=== PATIENT | male | born 1935 | race Caucasian/White ===

== ENCOUNTER 2016-09-30 16:37 | Emergency (ER) | payer OTHER ==
[~2016-09-30 16:37] MED LIST: Sodium Chloride 0.9% 100 ML BAG ONE
[2016-09-30 17:18] LABS: #Basophils 0.1 thou/uL (0.0-0.2); #Eosinphils 1.1 thou/uL (0.0-0.7); #Lymphocytes 1.5 thou/uL (1.20-3.40); #Monocytes 0.5 thou/uL (0.11-0.59); #Neutrophils 3.5 thou/uL (1.40-6.50); %Basophils 0.8 % (0.0-1.0); %Lymphocytes 22.3 % (21.0-51.0); %Monocytes 7.4 % (0.0-10.0); %Neutrophils 52.4 % (42.0-75.0); Mean Corpuscular HGB CONC 34.3 g/dL (32.0-36.0); Mean Corpuscular Volume 96.3 fl (80.0-94.0); Mean Platelet Volume 7.4 fL (7.4-10.4); Platelet Count 191 thou/uL (130-400); RBC Distribution Width 12.6 % (11.5-14.5); Red Blood Cell (RBC) Count 3.64 mill/uL (4.70-6.10); White Blood Cell (WBC) Count 6.6 thou/uL (4.8-10.8)
[2016-09-30 17:20] LABS: INR-International Normal Ratio 1.1; Prothrombin Time 14.8 SEC (12.0-14.7)
[2016-09-30 17:21] LABS: PTT 31.4 SEC (22.9-36.1)
[2016-09-30 17:33] LABS: ALT (SGPT) 26 U/L (0-55); AST (SGOT) 26 U/L (5-34); Albumin 4.2 g/dL (3.4-4.8); Alkaline Phosphatase 92 U/L (40-150); Anion Gap 10 mmol/L (10-20); BUN (Urea Nitrogen) 19 mg/dL (8.4-25.7); Bilirubin, Total 0.5 mg/dL (0.2-1.2); Calc. Creatinine Clearance 0 mL/min (70-130); Calcium 9.5 mg/dL (7.8-10.44); Carbon Dioxide 27 mmol/L (23-31); Chloride 107 mmol/L (98-107); Estimated GFR-MDRD 74; Globulin 2.4 g/dL (2.4-3.5); Glucose 104 mg/dL (83-110); Magnesium 2.2 mg/dL (1.6-2.6); Phosphorus 2.7 mg/dL (2.3-4.7); Potassium 4.2 mmol/L (3.5-5.1); Protein, Total 6.6 g/dL (5.8-8.1); Sodium 140 mmol/L (136-145)
[2016-09-30 17:34] LABS: T4 5.6 ug/dL (4.87-11.72); Thyroid Stimulating Hormone 3.1284 uIU/mL (0.35-4.94)
--- NOTE | 2016-09-30 17:36 | RAD ---
CHEST ONE VIEW 09/30/16 HISTORY: Dyspnea. COMPARISON: None. FINDINGS: There is an air space opacity right mid lung and lower lobe. There is some blunting of the right lat eral costophrenic sulcus. Heart size is prominent although may be accentuated due to technique. IMPRESSION: 1. Right middle and lower lobe air space opacity suspicious for infectious process. Recommend f ollowup after treatment. 2. Slightly blunting right lower costophrenic focus could be sequela of infection or layering f luid. POS: [facility]
[2016-09-30 17:50] LABS: CKMB 6.6 ng/mL (0-6.6)
[2016-09-30] MEDS ORDERED: Enoxaparin Sodium 80 MG/0.8 ML SYRINGE ONE (18:04)
[2016-09-30] MEDS ORDERED: Clopidogrel Bisulfate 75 MG TAB ONE (18:04)
== END 2016-09-30 18:33 | disposition short-term general hospital (02) ==
LOC: MADERS 16:37
DX: I48.92 Unspecified atrial flutter (principal); I24.8 Other forms of acute ischemic heart disease; I11.0 Hypertensive heart disease with heart failure; I50.9 Heart failure, unspecified
CPT/HCPCS: 71010; 80053; 82553; 83735; 83880; 84100; 84436; 84443; 84484; 85025; 85610; 85730; 93005; 96372; 96374; 96376; J1650; J7050